=== PATIENT | female | born 1965 ===

== ENCOUNTER 2021-08-31 11:00 | Outpatient (CLI) | payer MEDICARE, OTHER | END 2021-08-31 11:01 | disposition home or self-care (01) | LOC: SLR 11:00 | PROVIDERS: ATTEND Internal Medicine | DX: G47.30 Sleep apnea, unspecified (principal) | CPT/HCPCS: 95810 ==

== ENCOUNTER 2021-09-28 11:00 | Outpatient (CLI) | payer MEDICARE, OTHER | END 2021-09-28 11:01 | disposition home or self-care (01) | LOC: SLR 11:00 | PROVIDERS: ATTEND Internal Medicine | DX: G47.33 Obstructive sleep apnea (adult) (pediatric) (principal) | CPT/HCPCS: 95811 ==